=== PATIENT | male | born 1995 ===

== ENCOUNTER 2017-12-26 11:35 | Emergency (ER) | payer OTHER ==
[2017-12-26 11:35] VITALS: BMI 28.3
[2017-12-26 11:52] VITALS: BP 131/80; PULSE 60; RESP 16; TEMP 98.4; O2SAT 100
--- NOTE | 2017-12-26 12:33 | C.PDOC ---
History Of Present Illness 21 y/o male presents to the ER complaining of swelling and pain in the right elbow. Patient states that the pain began after he was playing soccer and fell on his right elbow 2 days ago. Patient reports that he is having trouble extending his right elbow. Patient denies having any other complaints. Time Seen by Provider: 12/26/17 11:54 Chief Complaint (Nursing): Upper Extremity Problem/Injury History Per: Patient History/Exam Limitations: no limitations Onset/Duration Of Symptoms: Days Current Symptoms Are (Timing): Still Present Severity: Moderate Past Medical History Reviewed: Historical Data, Nursing Documentation, Vital Signs Vital Signs: Last Vital Signs Temp 98.4 F 12/26/17 11:49 Pulse 60 12/26/17 11:49 Resp 16 12/26/17 11:49 BP 131/80 12/26/17 11:49 Pulse Ox 100 12/26/17 13:33 - Medical History PMH: No Chronic Diseases Surgical History: No Surg Hx Family History: States: No Known Family Hx - Social History Hx Alcohol Use: Yes Hx Substance Use: No - Immunization History Hx Tetanus Toxoid Vaccination: No Hx Influenza Vaccination: No Hx Pneumococcal Vaccination: No Review Of Systems Except As Marked, All Systems Reviewed And Found Negative. Constitutional: Negative for: Fever, Chills Musculoskeletal: Positive for: Arm Pain (right elbow pain) Neurological: Negative for: Weakness, Numbness Physical Exam - Physical Exam Appears: Non-toxic, No Acute Distress Skin: Normal Color, Warm Head: Atraumatic, Normacephalic Eye(s): bilateral: Normal Inspection Nose: Normal Oral Mucosa: Moist Neck: Supple Chest: Symmetrical Extremity: No Normal ROM (decreased right elbow extension), Tenderness (right elbow), Swelling (right elbow ) Neurological/Psych: Oriented x3, Normal Speech, Normal Motor, Normal Sensation ED Course And Treatment O2 Sat by Pulse Oximetry: 100 (RA) Pulse Ox Interpretation: Normal - Other Rad Right Elbow X-Ray X-Ray: Viewed By Me, Read By Radiologist Interpretation: PROCEDURE: Radiographs of the right elbow. HISTORY: fall, elbow pain. COMPARISON: No prior. FINDINGS: BONES: A nondisplaced radial head/neck cortical fracture present. JOINTS: Probable early trace arthrosis suggested ulnar coronoid. SOFT TISSUES: Normal. JOINT EFFUSION: Present. OTHER FINDINGS: None. IMPRESSION: Nondisplaced radial head/neck fracture with joint effusion. Comments: Study tagged for PA review. No initial ER interpretation/ note offered. Medical Decision Making Medical Decision Making: Plan: --X-Ray- Right Elbow --Motrin PO Disposition Counseled Patient/Family Regarding: Studies Performed, Diagnosis, Need For Followup, Rx Given - Disposition Referrals: Ramón Dove III, MD [Staff Provider] - Disposition: HOME/ ROUTINE Disposition Time: 13:14 Condition: STABLE Prescriptions: Ibuprofen [Motrin] 1 tab PO TID PRN #30 tab PRN Reason: Pain Instructions: Fractures Forms: General Discharge Instructions, [facility] ([place]), Work Excuse - POA Present On Arrival: None - Clinical Impression Clinical Impression: Fracture of bone - Scribe Statement The provider has reviewed the documentation as recorded by the Maddiibe Bello Simeon Provider Attestation: All medical record entries made by the Scribe were at my direction and personally dictated by me. I have reviewed the chart and agree that the record accurately reflects my personal performance of the history, physical exam, medical decision making, and the department course for this patient. I have also personally directed, reviewed, and agree with the discharge instructions and disposition.
--- NOTE | 2017-12-26 13:08 | RAD ---
PROCEDURE: Radiographs of the right elbow. HISTORY: fall, elbow pain COMPARISON: No prior. FINDINGS: BONES: A nondisplaced radial head/neck cortical fracture present. JOINTS: Probable early trace arthrosis suggested ulnar coronoid. SOFT TISSUES: Normal. JOINT EFFUSION: Present OTHER FINDINGS: None. IMPRESSION: Nondisplaced radial head/neck fracture with joint effusion. Comments: Study tagged for PA review. No initial ER interpretation/ note offered.
== END 2017-12-26 13:57 | disposition home or self-care (01) ==
LOC: C.ER 11:35
DX: S52.124A Nondisplaced fracture of head of right radius, initial encounter for closed fracture (principal); S52.134A Nondisplaced fracture of neck of right radius, initial encounter for closed fracture; W18.30XA Fall on same level, unspecified, initial encounter; Y93.66 Activity, soccer

== ENCOUNTER 2018-07-27 12:57 | Emergency (ER) | payer OTHER ==
[2018-07-27 12:58] VITALS: BMI 28.3
[2018-07-27 13:02] VITALS: TEMP 98.3
[2018-07-27] MEDS ORDERED: Lidocaine 2% Inj (20ml) INFIL ONE (13:19)
[2018-07-27] MEDS ORDERED: Tdap Vaccine 0.5 ml Vial (10-64 yrs) IM ONE ×2 (13:23→13:40)
[2018-07-27] MEDS ORDERED: Bacitracin 500 Units/gm Oint Foilpak UD TOP ONE (13:23)
[2018-07-27] MEDS ORDERED: Bacitracin 500 Units/gm Oint Foilpak UD ONE (13:40)
[2018-07-27] MEDS ORDERED: Amoxicillin-Clav 875-125 mg Tab PO STA (14:24)
--- NOTE | 2018-07-27 14:30 | C.PDOC ---
Addendum entered and electronically signed by Holly Martinez PA 07/27/18 18:29: ED Course And Treatment O2 Sat by Pulse Oximetry: 97 Progress Note: Wound was sutured loosely as this is a dog bite. Original Note: History Of Present Illness 22-year-old male, presents to the emergency department with complaints of dog bite. Pt states he went to his cousins dog to give him a kiss, and the dog jumped up and bit his upper lip at 4am today. Dog is up to date with vaccines. Time Seen by Provider: 07/27/18 13:07 Chief Complaint (Nursing): Abnormal Skin Integrity History Per: Patient History/Exam Limitations: no limitations Recent travel outside of the [place]: No Past Medical History Reviewed: Historical Data, Nursing Documentation, Vital Signs Vital Signs: Last Vital Signs Temp 98.3 F 07/27/18 13:00 Pulse 64 07/27/18 13:00 Resp 17 07/27/18 13:00 BP 125/83 07/27/18 13:00 Pulse Ox 97 07/27/18 13:00 Family History: States: No Known Family Hx - Social History Hx Alcohol Use: Yes Hx Substance Use: No - Immunization History Hx Tetanus Toxoid Vaccination: No Hx Influenza Vaccination: No Hx Pneumococcal Vaccination: No Review Of Systems Skin: Positive for: Other (laceration) Physical Exam - Physical Exam Appears: Non-toxic, No Acute Distress Skin: Warm, Dry, Other (2cm laceration to upper lip, crossing vermilion border) Head: Atraumatic, Normacephalic Eye(s): bilateral: Normal Inspection, PERRL, EOMI Nose: Normal Oral Mucosa: Moist Lips: Normal Appearing Neck: Normal ROM Chest: Symmetrical, No Tenderness Respiratory: No Accessory Muscle Use Extremity: Normal ROM, No Deformity, No Swelling Neurological/Psych: Oriented x3, Normal Speech, Normal Motor, Normal Sensation Gait: Steady ED Course And Treatment O2 Sat by Pulse Oximetry: 97 Pulse Ox Interpretation: Normal (RA) Progress Note: Wound was irrigated with 1000cc of pressurized saline and betadine. Procedure: Wound Repair - Time Performed Time Performed: 14:00 - Time Out Time Out: Side verified, Site verified - Procedure Procedure: Wound Repair: lip laceration - Consent Obtained Consent obtained: Verbal - Performed by Performed by: Mid-level Provider (Michelle) - Location Location:: Lip Shape:: Linear Dimensions Length cm: 2 Depth:: Epidermis - Anesthetic Technique Local/Regional Anesthetic:: Lidocaine 2% - Debris Debris:: None - Irrigated Irrigated with ml of normal saline: Saline - Complexity Complexity:: Intermediate (2 layer) - Wound repair method Sutures:: # (Vicryl ), Size (5-0 ), Type (Vicryl), Technique (interrupted) - Patient tolerated procedure Patient Tolerated Procedure:: Well Medical Decision Making Medical Decision Making: Tetanus given, Disposition - Disposition Referrals: [facility] [Outside] Disposition: HOME/ ROUTINE Disposition Time: 14:31 Condition: STABLE Additional Instructions: Follow up with the medical doctor within 1-2 days without fail. Return if worsened. Prescriptions: Amoxicillin/Clavulanate [Augmentin 875 MG-125 MG] 1 tab PO BID #19 tab Instructions: Animal Bites (DC), Laceration Repair With Stitches (DC) Forms: [facility] ([place]) - POA Present On Arrival: None - Clinical Impression Clinical Impression: Laceration, Dog bite - Scribe Statement The provider has reviewed the documentation as recorded by the Scribe (Sedrick Thrasher) All medical record entries made by the Scribe were at my direction and personally dictated by me. I have reviewed the chart and agree that the record accurately reflects my personal performance of the history, physical exam, medical decision making, and the department course for this patient. I have also personally directed, reviewed, and agree with the discharge instructions and disposition.
[2018-07-27] MEDS ORDERED: Amoxicillin-Clav 875-125 mg Tab PO ONE (14:31)
[2018-07-27 14:41] VITALS: BP 116/69; PULSE 72; RESP 16
[2018-07-27 17:45] VITALS: O2SAT 97
== END 2018-07-27 14:40 | disposition home or self-care (01) ==
LOC: C.ER 12:57
DX: S01.551A Open bite of lip, initial encounter (principal); W54.0XXA Bitten by dog, initial encounter; Z23 Encounter for immunization

== ENCOUNTER 2018-08-06 12:46 | Emergency (ER) | payer OTHER ==
[2018-08-06 13:04] VITALS: BP 138/92; PULSE 70; RESP 16; TEMP 98.9; O2SAT 98; BMI 22.3
--- NOTE | 2018-08-06 13:13 | C.PDOC ---
History Of Present Illness 22 year old male presents to the ED for suture removal on the upper lip. Patient notes he was scratched by a dog 10 days ago and prior visit to ED where sutures were added to his lip. Denies fever, numbness, tingling and any other associated symptoms. Time Seen by Provider: 08/06/18 13:10 Chief Complaint (Nursing): Suture/Staple Removal History Per: Patient History/Exam Limitations: no limitations Onset/Duration Of Symptoms: Other (suture removal.) Past Medical History Reviewed: Historical Data, Nursing Documentation, Vital Signs Vital Signs: Last Vital Signs Temp 98.9 F 08/06/18 13:00 Pulse 70 08/06/18 13:00 Resp 16 08/06/18 13:00 BP 138/92 H 08/06/18 13:00 Pulse Ox 98 08/06/18 13:00 Family History: States: Unknown Family Hx - Social History Hx Alcohol Use: Yes Hx Substance Use: No - Immunization History Hx Tetanus Toxoid Vaccination: No Hx Influenza Vaccination: No Hx Pneumococcal Vaccination: No Review Of Systems Except As Marked, All Systems Reviewed And Found Negative. Constitutional: Positive for: Fever ENT: Positive for: Other (sutures on the upper lip. ) Neurological: Negative for: Weakness, Numbness, Incoordination Physical Exam - Physical Exam Appears: Non-toxic Skin: Normal Color, Warm, Dry Head: Atraumatic, Normacephalic Lips: Normal Appearing, No Swelling, No Erythema, No Other ((-) infection. (-) puss. (-) fluctuance. Removed 3 sutures from the upper lip.) ED Course And Treatment O2 Sat by Pulse Oximetry: 98 (RA) Pulse Ox Interpretation: Normal Medical Decision Making Medical Decision Making: Progress/Update: Sutures x3 were removed from the upper lip. Patient stable for discharge home. Disposition - Disposition Disposition: HOME/ ROUTINE Disposition Time: 13:18 Condition: GOOD Additional Instructions: CHAYITO SAUER, thank you for letting us take care of you today. Your provider was Tara White MD and you were treated for STITCHES REMOVAL. The emergency medical care you received today was directed at your acute symptoms. If you were prescribed any medication, please fill it and take as directed. It may take several days for your symptoms to resolve. Return to the Emergency Department if your symptoms worsen, do not improve, or if you have any other problems. Please contact your doctor or call one of the physicians/clinics you have been referred to that are listed on the Patient Visit Information form that is included in your discharge packet. Bring any paperwork you were given at discharge with you along with any medications you are taking to your follow up visit. Our treatment cannot replace ongoing medical care by a primary care provider outside of the emergency department. Thank you for allowing the [facility] team to be part of your care today. If you had an X-Ray or CT scan: A Radiologist will review the ED reading if any change in treatment is needed we will contact you. If you had a blood, urine, or wound culture: It will take several days for the results, if any change in treatment is needed we will contact you. If you had an STI test: It will take 48 hours for the results. Please call after 1 week if you have not heard back. Instructions: Stitches Removal Forms: [employer] ([place]) - Clinical Impression Clinical Impression: Removal of suture - Scribe Statement The provider has reviewed the documentation as recorded by the Scribe (Miracle Shaikh) Provider Attestation: All medical record entries made by the Scribe were at my direction and personally dictated by me. I have reviewed the chart and agree that the record accurately reflects my personal performance of the history, physical exam, medical decision making, and the department course for this patient. I have also personally directed, reviewed, and agree with the discharge instructions and disposition.
== END 2018-08-06 13:18 | disposition home or self-care (01) ==
LOC: C.ER 12:46
DX: Z48.02 Encounter for removal of sutures (principal)